=== PATIENT | female | born 1965 | race Caucasian/White ===

== ENCOUNTER 2018-08-15 14:31 | Emergency (ER) | payer BC, OTHER ==
--- NOTE | 2018-08-15 14:54 | EDM.PDOC ---
ED HPI GENERAL MEDICAL PROBLEM - General Chief Complaint: Lower Extremity Injury/Pain Stated Complaint: left foot pain Time Seen by Provider: 08/15/18 14:40 - History of Present Illness INITIAL COMMENTS - FREE TEXT/NARRATIVE: Makayla is a 53 year old female who presents to the ED with c/o left foot pain. She reports she was dusting pictures hanging in her stair well. She reports she missed a step and twisted her ankle. She reports instant pain in her mid left foot. She does have obvious swelling and bruising to the area. She reports injury happened around 1345. She reports significant pain with weight bearing and ambulation. She has been unable to bear weight. Denies any numbness or tingling. She is tender in the mid anteriolateral area of her foot. She denies any other complaints. Onset: Today, Sudden Onset Date: 08/15/18 Onset Time: 13:30 Duration: Constant Location: Reports: Lower Extremity, Left Quality: Reports: Ache, Sharp Severity: Moderate Improves with: Reports: Cold Therapy, Medication Worsens with: Reports: Movement Context: Reports: Activity Associated Symptoms: Reports: No Other Symptoms Treatments [employer]ER: Reports: NSAIDS Left Feet Pain Score (Numeric/FACES): 7 - Related Data Allergies Allergy/AdvReac Type Severity Reaction Status Date / Time No Known Allergies Allergy Verified 08/15/18 14:34 Home Meds: Home Meds Ibuprofen [Advil] 400 mg PO ASDIRECTED PRN 08/15/18 [History] Past Medical History HEENT History: Reports: Impaired Vision Dermatologic History: Reports: Other (See Below) Other Dermatologic History: basal cell carcinoma - Past Surgical History Dermatological Surgical History: Reports: Skin Biopsy Social & Family History - Family History Family Medical History: Noncontributory - Tobacco Use Smoking Status *Q: Never Smoker - Caffeine Use Caffeine Use: Reports: None - Recreational Drug Use Recreational Drug Use: No Review of Systems - Review of Systems Review Of Systems: ROS reveals no pertinent complaints other than HPI. ED EXAM, GENERAL - Physical Exam Exam: See Below Exam Limited By: No Limitations General Appearance: Alert, WD/WN, No Apparent Distress Peripheral Pulses: 2+: Posterior Tibial (L), Dorsalis Pedis (L) Extremities: Normal Capillary Refill, Joint Swelling, Leg Pain (foot pain- left) , Other (limited ROM to left foot, tender to anterolateral aspect of left mid foot, moderate swelling and ecchymosis noted to anterolateral aspect ). No: Increased Warmth, Redness Psychiatric: Normal Affect, Normal Mood Skin Exam: Ecchymosis (left anteriorlateral foot) Course - Vital Signs Last Recorded V/S: Last Vital Signs Temp 98 F 08/15/18 14:32 Pulse 71 08/15/18 14:32 Resp 18 08/15/18 14:32 BP 168/81 H 08/15/18 14:32 Pulse Ox 100 08/15/18 14:32 - Orders/Labs/Meds Orders: Active Orders 24 hr Category Date Time Status Foot Comp Min 3V Lt [CR] Stat Exams 08/15/18 14:36 Taken - Re-Assessments/Exams Free Text/Narrative Re-Assessment/Exam: Xrays negative for acute fracture or dislocation. Departure - Departure Time of Disposition: 15:13 Disposition: Home, Self-Care 01 Condition: Good Clinical Impression: Sprain of left foot Qualifiers: Encounter type: initial encounter Qualified Code(s): S93.602A - Unspecified sprain of left foot, initial encounter - Discharge Information *PRESCRIPTION DRUG MONITORING PROGRAM REVIEWED*: Not Applicable *COPY OF PRESCRIPTION DRUG MONITORING REPORT IN PATIENT TRACY: Not Applicable Instructions: Foot Sprain Referrals: PCP,Unknown [Primary Care Provider] - Forms: ED Department Discharge Additional Instructions: Rest, ice, and elevate foot as much as able Tenzin wrap as needed to provide compression to area Alternate Tylenol and ibuprofen as needed for pain Weight bearing as tolerated. Use crutches until able to fully bear weight without pain. We will call with radiology read of xray. Start Calcium and Vitamin D3 supplement. Follow up if symptoms worsen or do not improve over the next 7-10 days - My Orders Last 24 Hours: My Active Orders 08/15/18 14:36 Foot Comp Min 3V Lt [CR] Stat - Assessment/Plan Last 24 Hours: My Active Orders 08/15/18 14:36 Foot Comp Min 3V Lt [CR] Stat
== END 2018-08-15 15:22 | disposition home or self-care (01) ==
LOC: CC.ED 14:31
DX: S93.602A Unspecified sprain of left foot, initial encounter (principal); X50.1XXA Overexertion from prolonged static or awkward postures, initial encounter
CPT/HCPCS: 73630-LT; 99283

== ENCOUNTER 2022-10-23 21:10 | Emergency (ER) | payer OTHER ==
[2022-10-23] MEDS: valACYclovir 500 MG Tab PO ONE ×2 (21:34→21:35)
== END 2022-10-23 21:49 | disposition home or self-care (01) ==
LOC: CC.ED 21:10
DX: B02.9 Zoster without complications (principal)
CPT/HCPCS: 99282; 99284; A9270-GY

== ENCOUNTER 2024-12-05 10:29 | Emergency (ER) | payer OTHER ==
[2024-12-05 10:50] LABS: BASOPHILS ABSOLUTE AUTO 0.03 10^3/uL (0.00-0.50); BASOPHILS PERCENT AUTO 0.5 % (0-1); EOSINOPHILS ABSOLUTE AUTO 0.24 10^3/uL (0.00-1.50); HEMATOCRIT 43.9 % (37.0-47.0); HEMOGLOBIN 14.2 g/dL (12.0-16.0); IMMATURE GRAN ABSOLUTE AUTO 0.01 10^3/uL (0.00-0.49); IMMATURE GRAN PERCENT AUTO 0.2 % (0.0-4.9); LYMPHOCYTES ABSOLUTE AUTO 1.07 10^3/uL (0.60-5.00); MEAN CORPUSCULAR HEMOGLOBIN 28.9 pg (27.0-32.0); MEAN CORPUSCULAR HGB CONC 32.3 g/dL (32.0-36.0); MEAN CORPUSCULAR VOLUME 89.4 fL (83.0-97.0); MONOCYTES ABSOLUTE AUTO 0.95 10^3/uL (0.00-1.50); MONOCYTES PERCENT AUTO 15.9 % (0-10); NEUTROPHILS ABSOLUTE AUTO 3.66 x10^3/uL (1.80-8.00); NEUTROPHILS PERCENT AUTO 61.4 % (41-71); PLATELET COUNT,PLT 239 10^3/uL (150-400); RED BLOOD CELL COUNT 4.91 x10^6/uL (4.00-5.50)
[2024-12-05 11:05] LABS: ALBUMIN 3.4 g/dL (3.4-5.0); BILIRUBIN TOTAL 0.4 mg/dL (0.0-1.0); C-REACTIVE PROTEIN 2.49 mg/dL (<=0.50); CALCIUM 8.5 mg/dL (8.4-10.1); CREATININE 0.8 mg/dL (0.6-1.0); EST CRCL DRUG DOSING (CG) 67.29 mL/min; POTASSIUM,K 4.1 mEq/L (3.5-5.0); PROTEIN TOTAL,TP 7.8 g/dL (6.4-8.2)
[2024-12-05 11:26] LABS: CORONAVIRUS COVID-19 NAA NEGATIVE (NEGATIVE); INFLUENZA A NAA NEGATIVE (NEGATIVE); INFLUENZA B NAA NEGATIVE (NEGATIVE); RESPIRATORY SYNCYTIAL VIR NAA NEGATIVE (NEGATIVE)
[2024-12-05] MEDS: methylPREDNISolone Sodium Succinate 125 MG/2 ML SDV IM STA (11:50)
[2024-12-05] MEDS: methylPREDNISolone Sodium Succinate 125 MG/2 ML SDV ONE (13:41)
[2024-12-05] MEDS: methylPREDNISolone Sodium Succinate 40 MG/1 ML SDV IM ONE (13:41)
== END 2024-12-05 11:55 | disposition home or self-care (01) ==
LOC: CC.ED 10:29
DX: J20.9 Acute bronchitis, unspecified (principal); Z79.1 Long term (current) use of non-steroidal anti-inflammatories (NSAID); Z90.710 Acquired absence of both cervix and uterus
CPT/HCPCS: 0241U; 36415; 71046; 80053; 85025; 86140; 96372; 99283; J2919